=== PATIENT | female | born 1990 | race Caucasian/White ===

== ENCOUNTER 2020-11-23 08:05 | Inpatient (IN) | payer OTHER ==
[2020-11-23 21:28] LABS: BASO % 0.6 % (0-2.0); EOS % 0.5 % (0-4.5); HEMATOCRIT 31.2 % (32.4-45.2); HEMOGLOBIN 10.5 GM/dL (10.7-15.3); LYMPH % 28.1 % (8-40); MCH 29.7 pg (25.7-33.7); MCHC 33.8 g/dl (32.0-36.0); MEAN PLT VOLUME 8.1 fl (7.5-11.1); MONO % 6.2 % (3.8-10.2); NEUT % 64.6 % (42.8-82.8); PLATELET COUNT 239 K/MM3 (134-434); RBC 3.55 M/mm3 (3.60-5.2); RDW 13.2 % (11.6-15.6); WHITE BLOOD COUNT 5.6 K/mm3 (4.0-10.0)
[2020-11-23] MEDS ORDERED: DINOPROSTONE 10 MG VAGINAL SUPPOSITORY VG ONE (21:30)
[2020-11-23 21:34] LABS: INR 0.9 (0.83-1.09); PROTHROMBIN TIME (PATIENT) 11.1 SEC (9.7-13.0)
[2020-11-23 21:35] VITALS: BMI 24.4
[2020-11-23 21:37] LABS: ACTIVATED PTT 25.3 SECONDS (25.2-36.5)
[2020-11-23 21:50] LABS: BLOOD UREA NITROGEN 14.4 mg/dL (7-18); CALCIUM 8.8 mg/dL (8.5-10.1)
[2020-11-23 21:52] LABS: CREATININE 0.9 mg/dL (0.55-1.3)
[2020-11-23] MEDS: ELECTROLYTE-148 SOLN 1,000 ML IV SCH (23:25)
[2020-11-24] MEDS: ELECTROLYTE-148 SOLN 1,000 ML IV SCH ×2 (03:00→07:00)
[2020-11-24] MEDS ORDERED: PROMETHAZINE HCL 25 MG/1 ML VIAL IVPB ONE (03:26)
[2020-11-24] MEDS ORDERED: BUTORPHANOL TARTRATE 2 MG/ML VIAL IVPB ONE (03:26)
[2020-11-24] MEDS ORDERED: BUTORPHANOL TARTRATE 2 MG/ML VIAL ONE (03:35)
[2020-11-24] MEDS ORDERED: PROMETHAZINE HCL 25 MG/1 ML VIAL ONE (03:36)
[2020-11-24] MEDS ORDERED: FENTANYL/BUPIVACAINE/NS/PF - PCEA - 50 ML DISP.SYRIN EP ONE (05:47)
[2020-11-24] MEDS ORDERED: PCA PUMP NR ONE (05:47)
[2020-11-24] MEDS: FENTANYL/BUPIVACAINE/NS/PF - PCEA - 50 ML DISP.SYRIN EP SCH (06:15)
[2020-11-24] MEDS ORDERED: NALOXONE HCL 0.4 MG/ML VIAL IVPUSH PRN (07:05)
[2020-11-24] MEDS ORDERED: LIDOCAINE HCL 1% PRESERVATIVE FREE - 30ML VIAL ONE (08:00)
[2020-11-24] MEDS ORDERED: OXYTOCIN 20 UNITS in 0.9% NS 20 UNIT/1,000 ML INFUS.BAG IV ONE (08:00)
[2020-11-24] MEDS: ACETAMINOPHEN 325 MG TABLET (FP) PO PRN ×2 (09:20→13:26)
[2020-11-24] MEDS: IBUPROFEN 600 MG TABLET (FP) PO PRN ×2 (09:20→13:29)
[2020-11-24] MEDS ORDERED: BISACODYL 10 MG SUPP.RECT RC PRN (12:33)
[2020-11-24] MEDS ORDERED: METHYLERGONOVINE MALEATE 0.2 MG/1 ML AMP IM PRN (12:33)
[2020-11-24] MEDS ORDERED: WITCH HAZEL 50% (TUCKS) 40 PAD/JAR PAD TP PRN (12:33)
[2020-11-24] MEDS ORDERED: BENZOCAINE 20% 57 GM BOTTLE TP PRN (12:33)
[2020-11-24] MEDS ORDERED: BENZOCAINE 28 GM HEMORRHOIDAL OINTMENT TP PRN (12:33)
[2020-11-24] MEDS ORDERED: OXYTOCIN 20 UNITS in 0.9% NS 1000 ML INFUS.BAG IV ONE (12:34)
[2020-11-25] MEDS: ELECTROLYTE-148 SOLN 1,000 ML IV SCH ×2 (01:15→22:54)
[2020-11-25] MEDS: IBUPROFEN 600 MG TABLET (FP) PO PRN ×4 (06:22→21:00)
[2020-11-25] MEDS: ACETAMINOPHEN 325 MG TABLET (FP) PO PRN ×4 (06:23→21:00)
[2020-11-25 08:29] LABS: BASO % 0.6 % (0-2.0); HEMATOCRIT 23.6 % (32.4-45.2); HEMOGLOBIN 7.9 GM/dL (10.7-15.3); LYMPH % 20.8 % (8-40); MCH 29.6 pg (25.7-33.7); MCHC 33.4 g/dl (32.0-36.0); MEAN CELL VOLUME 88.8 fl (80-96); MEAN PLT VOLUME 8.4 fl (7.5-11.1); MONO % 4.9 % (3.8-10.2); NEUT % 72.7 % (42.8-82.8); PLATELET COUNT 172 K/MM3 (134-434); RBC 2.66 M/mm3 (3.60-5.2); RDW 13.3 % (11.6-15.6); WHITE BLOOD COUNT 8.7 K/mm3 (4.0-10.0)
[2020-11-25] MEDS ORDERED: SENNOSIDES/DOCUSATE COMBO (SENNA PLUS) TABLET (UD) PO PRN (22:00)
[2020-11-25] MEDS: FENTANYL/BUPIVACAINE/NS/PF - PCEA - 50 ML DISP.SYRIN EP SCH (22:51)
[2020-11-26] MEDS: ACETAMINOPHEN 325 MG TABLET (FP) PO PRN (10:30)
[2020-11-26 14:14] VITALS: BP 107/67; PULSE 88; TEMP 98.2
== END 2020-11-26 14:00 | disposition home or self-care (01) | DRG 560 ==
LOC: JLDR 08:05 → J3W 11-24 12:22
PROVIDERS: ADMIT Specialist; ATTEND Specialist
PROC: 3E0P7VZ Introduction of Hormone into Female Reproductive, Via Natural or Artificial Opening (ICD-10-PCS; principal; 2020-11-23)
PROC: 10907ZC Drainage of Amniotic Fluid, Therapeutic from Products of Conception, Via Natural or Artificial Opening (ICD-10-PCS; 2020-11-24)
PROC: 10E0XZZ Delivery of Products of Conception, External Approach (ICD-10-PCS; 2020-11-24)
DX: O36.5930 Maternal care for other known or suspected poor fetal growth, third trimester, not applicable or unspecified (principal); O70.0 First degree perineal laceration during delivery; Z37.0 Single live birth; Z3A.38 38 weeks gestation of pregnancy
CPT/HCPCS: 36415; 59409; 80048; 85025; 85610; 85730; 86780; 86850; 86900; 86901